=== PATIENT | male | born 1990 | race Caucasian/White ===

== ENCOUNTER 2024-04-29 11:43 | Emergency (ER) | payer BC, OTHER ==
[2024-04-29] MEDS ORDERED: Lidocaine 1% w/Epinephrine 1:100K 20 ML VIAL ONE (11:53)
== END 2024-04-29 12:10 | disposition home or self-care (01) ==
LOC: BURERS 11:43
DX: S01.01XA Laceration without foreign body of scalp, initial encounter (principal); W22.8XXA Striking against or struck by other objects, initial encounter
CPT/HCPCS: 12001; 99283